=== PATIENT | female | born 1965 | race Hispanic/Latino ===

== ENCOUNTER 2022-08-29 17:31 | Observation (INO) | payer OTHER ==
[~2022-08-29] VITALS: Ht 162.6 cm; Wt 92.5 kg
[2022-08-29] MEDS ORDERED: CEFTRIAXONE 1 GM VIAL IV SCH (18:30)
[2022-08-29] MEDS ORDERED: SODIUM CHLORIDE 0.9% IV ONE (18:30)
[2022-08-29 18:42] LABS: BASOPHILS % 0.3 % (0.0-1.0); EOSINOPHILS % 0.1 % (0.0-6.0); HEMATOCRIT 33.9 % (34.2-44.1); HEMOGLOBIN 11.5 g/dL (12.0-16.0); LYMPHOCYTES # (AUTO) 0.9 (1.0-3.2); LYMPHOCYTES % 5.6 % (18.0-39.1); MEAN CORPUSCULAR HEMOGLOBIN 29.3 pg (28-32); MEAN CORPUSCULAR HGB CONC 33.9 g/dL (31-35); MEAN CORPUSCULAR VOLUME 86.5 fL (81-99); MONOCYTES # (AUTO) 0.7 (0.2-0.8); MONOCYTES % 4.7 % (4.4-11.3); NEUTROPHILS # (AUTO) 13.5 (2.1-6.9); NEUTROPHILS % 88.6 % (38.7-80.0); PLATELET COUNT 263 x10e3/uL (140-360); RED BLOOD COUNT 3.92 x10e6/uL (3.6-5.1); RED CELL DISTRIBUTION WIDTH 13.2 % (11.7-14.4)
[2022-08-29 18:50] LABS: INR 1.12; PROTHROMBIN TIME 14.9 seconds (11.9-14.5)
[2022-08-29 18:51] LABS: PARTIAL THROMBOPLASTIN TIME 30.5 seconds (23.8-35.5)
[2022-08-29 18:57] LABS: ALBUMIN 2.6 g/dL (3.5-5.0); ALBUMIN/GLOBULIN RATIO 0.5 (0.8-2.0); ANION GAP 15.3 mmol/L (8-16); CREATININE, SERUM 1.86 mg/dL (0.57-1.11); POTASSIUM 3.3 mmol/L (3.5-5.1)
[2022-08-29 19:05] LABS: CLARITY,URINE TURBID (CLEAR); COLOR,URINE RED (YELLOW); KETONES,URINE 1+ (NEGATIVE); LEUKOCYTE ESTERASE ,URINE LARGE (NEGATIVE); NITRITE,URINE POSITIVE (NEGATIVE); PROTEIN,URINE DIPSTICK >=300 (NEGATIVE)
[2022-08-29 19:14] LABS: BACTERIA,URINE MANY /HPF; EPITHELIAL CELLS,URINE RARE /LPF; RBC,URINE 0-5 /HPF (0-5)
[2022-08-29 19:15] LABS: AMORPHOUS SEDIMENT,URINE MODERATE (FEW)
[2022-08-29] MEDS ORDERED: POTASSIUM CHLORIDE 10MEQ EA PO ONE (21:30)
[2022-08-29] MEDS ORDERED: ONDANSETRON HCL INJ 2MG/ML 2ML 2 MG/ML VIAL IV PRN (21:30)
[2022-08-29] MEDS ORDERED: CLONIDINE HCL 0.1 MG TAB PO PRN (21:30)
[2022-08-29] MEDS: SODIUM CHLORIDE 0.9% 1000ML 1,000 ML IV SCH (23:14)
[2022-08-29 23:40] VITALS: BP 137/80; PULSE 92; RESP 20; TEMP 98.6; O2SAT 97
[2022-08-30] VITALS (7 sets, daily range): BP systolic 137–161; BP diastolic 70–84; PULSE 89–94; RESP 18–20; TEMP 97.9–98.7; O2SAT 97–100
[2022-08-30 04:49] LABS: BASOPHILS # (AUTO) 0.1 (0.0-0.1); BASOPHILS % 0.9 % (0.0-1.0); EOSINOPHILS % 0.1 % (0.0-6.0); HEMATOCRIT 31.1 % (34.2-44.1); HEMOGLOBIN 10.1 g/dL (12.0-16.0); LYMPHOCYTES # (AUTO) 0.9 (1.0-3.2); LYMPHOCYTES % 8.5 % (18.0-39.1); MEAN CORPUSCULAR HEMOGLOBIN 28.9 pg (28-32); MEAN CORPUSCULAR HGB CONC 32.5 g/dL (31-35); MEAN CORPUSCULAR VOLUME 88.9 fL (81-99); MONOCYTES # (AUTO) 0.5 (0.2-0.8); NEUTROPHILS % 84.9 % (38.7-80.0); PLATELET COUNT 222 x10e3/uL (140-360); RED CELL DISTRIBUTION WIDTH 13.2 % (11.7-14.4)
[2022-08-30 05:09] LABS: ALBUMIN/GLOBULIN RATIO 0.5 (0.8-2.0); ANION GAP 12.5 mmol/L (8-16); CALCIUM 8.7 mg/dL (8.4-10.2); CREATININE, SERUM 1.27 mg/dL (0.57-1.11); POTASSIUM 3.5 mmol/L (3.5-5.1)
[2022-08-30 05:23] LABS: CHOL/HDL RATIO 36.4 (3.0-3.6); CHOLESTEROL 182 MD/DL (0-199); HDL CHOLESTEROL 5 MG/DL (40-60); TRIGLYCERIDES 445 MG/DL (0-149)
[2022-08-30] MEDS: SODIUM CHLORIDE 0.9% 1000ML 1,000 ML IV SCH ×3 (07:23→20:36)
[2022-08-30] MEDS: ACETAMINOPHEN 325 MG TAB PO PRN ×2 (09:10→21:17)
[2022-08-30] MEDS: HEPARIN SOD (PORCINE) 5,000 UNIT/ML VIAL SC SCH (21:15)
[2022-08-31] VITALS: BP 122/65; PULSE 76; RESP 20; TEMP 98.6; O2SAT 99
[2022-08-31] MEDS: SODIUM CHLORIDE 0.9% 1000ML 1,000 ML IV SCH ×2 (01:15→09:17)
[2022-08-31 04:00] VITALS: BP 136/77; PULSE 78; RESP 20; TEMP 97.7; O2SAT 100
[2022-08-31 05:02] LABS: BASOPHILS % 0.3 % (0.0-1.0); EOSINOPHILS % 0.2 % (0.0-6.0); HEMATOCRIT 34.4 % (34.2-44.1); HEMOGLOBIN 11.1 g/dL (12.0-16.0); LYMPHOCYTES # (AUTO) 1.7 (1.0-3.2); LYMPHOCYTES % 16.5 % (18.0-39.1); MEAN CORPUSCULAR HEMOGLOBIN 29.1 pg (28-32); MEAN CORPUSCULAR HGB CONC 32.3 g/dL (31-35); MEAN CORPUSCULAR VOLUME 90.3 fL (81-99); MONOCYTES # (AUTO) 0.8 (0.2-0.8); MONOCYTES % 7.2 % (4.4-11.3); NEUTROPHILS # (AUTO) 7.8 (2.1-6.9); NEUTROPHILS % 74.1 % (38.7-80.0); PLATELET COUNT 271 x10e3/uL (140-360); RED BLOOD COUNT 3.81 x10e6/uL (3.6-5.1)
[2022-08-31 05:35] LABS: ANION GAP 11.3 mmol/L (8-16); CALCIUM 8.9 mg/dL (8.4-10.2); CREATININE, SERUM 1.03 mg/dL (0.57-1.11); POTASSIUM 3.3 mmol/L (3.5-5.1)
[2022-08-31 08:01] VITALS: BP 140/61; PULSE 80; RESP 19; TEMP 98.3; O2SAT 98
[2022-08-31 08:35] LABS: ANISOCYTOSIS MODERATE; HYPOCHROMASIA SLIGHT; PLATELET ESTIMATE ADEQUATE; PLATELET MORPHOLOGY COMMENT NORMAL; RBC MORPHOLOGY COMMENT ABNORMAL
[2022-08-31] MEDS: HEPARIN SOD (PORCINE) 5,000 UNIT/ML VIAL SC SCH (09:23)
[2022-08-31 09:25] VITALS: BP 140/61; PULSE 80; RESP 19; TEMP 98.3; O2SAT 98
[2022-08-31] MEDS ORDERED: ONDANSETRON HCL 4 MG ORAL DISINTEGRATING TAB PO PRN (10:30)
[2022-08-31] MEDS ORDERED: CIPRO500 MG PO (11:36)
[2022-08-31 12:00] VITALS: BP 163/74; PULSE 82; RESP 19; TEMP 98.1; O2SAT 100
[2022-08-31 16:06] VITALS: BP 151/73; PULSE 92; RESP 19; TEMP 98.9; O2SAT 98
== END 2022-08-31 15:02 | disposition home or self-care (01) ==
LOC: ER 17:52 → ERHOLD 21:20 → MED/SURG 23:28
PROVIDERS: ADMIT Internal Medicine; ATTEND Internal Medicine
DX: N39.0 Urinary tract infection, site not specified (principal); B96.20 Unspecified Escherichia coli [E. coli] as the cause of diseases classified elsewhere; N17.9 Acute kidney failure, unspecified; E87.1 Hypo-osmolality and hyponatremia; Z20.822 Contact with and (suspected) exposure to COVID-19
CPT/HCPCS: 0223U; 36415 ×3; 71045; 74176; 80048; 80053 ×2; 80061; 81001; 83036; 83605; 85025 ×3; 85610; 85730; 87040; 87086; 87186; 93005; 99284; G0378 ×3; J0696 ×2; J1644 ×2; J7030 ×3